=== PATIENT | female | born 1950 | race Caucasian/White ===

== ENCOUNTER → 2021-07-04 | Outpatient (CLI) | payer MEDICARE ==
--- NOTE | 2021-07-04 13:31 | RAD ---
EXAM: 2 views left humerus DATE: 07/04/2021 1:10 PM INDICATION: Reason: FALL X 2 WEEKS AGO / Spl. Instructions: / History: . COMPARISON: No Prior FINDINGS/ IMPRESSION: Comminuted fracture of the proximal left humerus with fracture through the base of greater tuberosity as well as surgical neck. This can be further profiled by CT. Electronically signed by: Ayush Anderson MD (07/04/2021 1:28 PM) [id number]
== END ==
LOC: RAD 13:02
PROVIDERS: ATTEND Nurse Practitioner Family
DX: S42.252A Displaced fracture of greater tuberosity of left humerus, initial encounter for closed fracture (principal); W10.8XXA Fall (on) (from) other stairs and steps, initial encounter; X58.XXXA Exposure to other specified factors, initial encounter; Y93.89 Activity, other specified; Y92.89 Other specified places as the place of occurrence of the external cause; Y99.8 Other external cause status
CPT/HCPCS: 73060

== ENCOUNTER 2021-08-03 09:13 | Emergency (ER) | payer MEDICARE, OTHER ==
[~2021-08-03] VITALS: Ht 152.4 cm; Wt 73.5 kg
[2021-08-03] MEDS ORDERED: CLINDAMYCIN 600MG PREMIX 50 ML IV ONE (10:30)
[2021-08-03 11:13] LABS: BASO # 0.1 x10^3/uL (0.0-0.2); BASO % 0 % (0-3); EOS # 0.2 x10^3/uL (0.0-0.7); EOS % 1 % (0-3); HEMATOCRIT 38.7 % (36.0-47.0); HEMOGLOBIN 12.5 g/dL (12.0-15.5); LYMPH # 1.4 x10^3/uL (1.0-4.8); LYMPH % 5 % (24-48); MEAN CORPUSCULAR HEMOGLOBIN 30 pg (25-35); MEAN CORPUSCULAR HGB CONC 32 g/dL (31-37); MEAN CORPUSCULAR VOLUME 92 fL (79-100); MONO # 1.7 x10^3/uL (0.0-1.1); MONO % 7 % (0-9); NEUT # 23.1 x10^3uL (1.8-7.7); NEUT % 87 % (31-73); PLATELET COUNT 337 x10^3/uL (140-400); RED BLOOD COUNT 4.23 x10^6/uL (3.50-5.40); RED CELL DISTRIBUTION WIDTH 16.8 % (11.5-14.5); WHITE BLOOD COUNT 26.5 x10^3/uL (4.0-11.0)
[2021-08-03] MEDS ORDERED: CONTRAST GIVEN. MC PRN (11:15)
[2021-08-03] MEDS ORDERED: IOHEXOL 300 MG/ML 75 ML VIAL. IV ONE (11:15)
[2021-08-03 11:25] LABS: CALCIUM 9.5 mg/dL (8.5-10.1); CREATININE 1.7 mg/dL (0.6-1.0); GFR 29.5; POTASSIUM 3.5 mmol/L (3.5-5.1)
[2021-08-03] MEDS ORDERED: IV NORMAL SALINE 1,000ML 1,000 ML IV ONE (11:30)
--- NOTE | 2021-08-03 11:55 | PHYS DOC ---
Past History Additional Past Medical Histor: left fractured humerous Past Surgical History: Other Additional Past Surgical Histo: thyroidectomy Alcohol Use: Occasionally Adult General Chief Complaint Chief Complaint: ABSCESS HPI HPI Patient is a 70-year-old female presenting with daughter for left neck abnormality. This was first noticed yesterday. Patient reports 48 hours ago having an itch on the left side of her chin which she subsequent itched vigorous ly. She states that it slowly developed into a small enlarged indurated area and after waking up this morning it and creased in size and became more warm to the touch. There is been no obvious exudate the patient reports focal pain in absence of any respiratory symptoms or concern with airway. She has no MRSA history, has history of high blood pressure only for which she is on medication. No other abnormalities noted Review of Systems Review of Systems Fourteen body systems of review of systems have been reviewed. See HPI for pertinent positives and negative responses, other kline all other systems are negative, non-pertinent or non-contributory Current Medications Current Medications Current Medications Medications (Trade) Dose Ordered Sig/Mehdi Start Time Stop Time Status Last Admin Dose Admin Clindamycin Phosphate 50 ml @ 100 mls/hr 1X ONCE 08/03/21 10:30 08/03/21 10:59 DC 08/03/21 11:23 100 MLS/HR Fentanyl Citrate (Fentanyl 2ml Vial) 50 mcg 1X ONCE 08/03/21 10:15 08/03/21 10:50 DC 08/03/21 11:23 50 MCG Info (Do NOT chart on this entry -- for MONITORING) 1 each PRN DAILY PRN 08/03/21 11:15 08/05/21 11:14 Iohexol (Omnipaque 300 Mg/ml) 75 ml 1X ONCE 08/03/21 11:15 08/03/21 11:16 DC 08/03/21 11:42 75 ML Sodium Chloride 1,000 ml @ 1,000 mls/hr 1X ONCE 08/03/21 11:30 08/03/21 12:29 Allergies Allergies Allergies Coded Allergies Type Severity Reaction Last Updated Verified Ollefax-PAS-QxL Reductase Inhibitor Allergy Unknown 08/03/21 Yes Sulfa (Sulfonamide Antibiotics) Allergy Unknown 08/03/21 Yes azithromycin Allergy Unknown 08/03/21 Yes dulaglutide Allergy Unknown 08/03/21 Yes Physical Exam Physical Exam Constitutional: Well developed, well nourished, no acute distress, non-toxic appearance. HENT: Normocephalic, atraumatic, bilateral external ears normal, oropharynx moist, no oral exudates, nose normal. Tolerating p.o. intake, no phonation changes, bilateral tonsils removed at young age with no obvious airway involvement Eyes: PERRLA, EOMI, conjunctiva normal, no discharge. Neck: Normal range of motion, no tenderness, supple, no stridor. Cardiovascular: Heart rate regular, sinus rhythm, no murmurs rubs or gallops Lungs & Thorax: Bilateral breath sounds clear to auscultation Abdomen: Bowel sounds normal, soft, no tenderness, no masses, no pulsatile masses. Nonsurgical abdomen, no peritoneal signs Skin: Warm, dry, erythematous region along the left submandibular area with obvious site of inoculation and subsequent palpable fluctuant mobile yet firm subcutaneous area concerning for abscess that is approximately 3 x 5 cm Back: No tenderness, no CVA tenderness. Extremities: No tenderness, no cyanosis, no clubbing, ROM intact, no edema. Neurologic: Alert and oriented X 3, grossly normal motor & sensory function, no focal deficits noted. Psychologic: Affect normal, judgement normal, mood normal. Current Patient Data Vital Signs Vital Signs Date Time Temp Pulse Resp B/P (MAP) Pulse Ox O2 Delivery O2 Flow Rate FiO2 08/03/21 11:23 Room Air 08/03/21 09:50 98.8 117 16 169/87 (114) 96 Lab Results Laboratory Tests Test 08/03/21 10:50 White Blood Count 26.5 x10^3/uL (4.0-11.0) H Red Blood Count 4.23 x10^6/uL (3.50-5.40) Hemoglobin 12.5 g/dL (12.0-15.5) Hematocrit 38.7 % (36.0-47.0) Mean Corpuscular Volume 92 fL (79-100) Mean Corpuscular Hemoglobin 30 pg (25-35) Mean Corpuscular Hemoglobin Concent 32 g/dL (31-37) Red Cell Distribution Width 16.8 % (11.5-14.5) H Platelet Count 337 x10^3/uL (140-400) Neutrophils (%) (Auto) 87 % (31-73) H Lymphocytes (%) (Auto) 5 % (24-48) L Monocytes (%) (Auto) 7 % (0-9) Eosinophils (%) (Auto) 1 % (0-3) Basophils (%) (Auto) 0 % (0-3) Neutrophils # (Auto) 23.1 x10^3uL (1.8-7.7) H Lymphocytes # (Auto) 1.4 x10^3/uL (1.0-4.8) Monocytes # (Auto) 1.7 x10^3/uL (0.0-1.1) H Eosinophils # (Auto) 0.2 x10^3/uL (0.0-0.7) Basophils # (Auto) 0.1 x10^3/uL (0.0-0.2) Platelet Estimate Pending Sodium Level 143 mmol/L (136-145) Potassium Level 3.5 mmol/L (3.5-5.1) Chloride Level 108 mmol/L (98-107) H Carbon Dioxide Level 23 mmol/L (21-32) Anion Gap 12 (6-14) Blood Urea Nitrogen 36 mg/dL (7-20) H Creatinine 1.7 mg/dL (0.6-1.0) H Estimated GFR (Cockcroft-Gault) 29.5 Glucose Level 125 mg/dL (70-99) H Calcium Level 9.5 mg/dL (8.5-10.1) EKG EKG [] Radiology/Procedures Radiology/Procedures CT NECK SOFT TISSUE WITH IV CONTRAST History: Left submandibular neck abscess. Comparison: None. Technique: CT of the neck with intravenous contrast. Findings: Mucosa: No mass in the nasal cavity, nasopharynx, oral cavity, oropharynx, larynx, hypopharynx, or proximal trachea/esophagus. Oral cavity is obscured by dental artifact. There is diffuse symmetric hypodensity of the tongue. Glands: Normal bilateral parotid and submandibular glands. The thyroid gland is absent. There is a residual midline thyroid tissue measuring 1.2 x 1.0 x 1.9 cm. Nodes: No pathologically enlarged or necrotic cervical lymph nodes. Vessels: Vascular structures are patent. No carotid space mass. Bones: Degenerative changes of the cervical spine greatest at C5-C6 where there is moderate severe disc and uncovertebral hypertrophy. Other: No suspicious lesion in the lung apices. Skin thickening and cutaneous fat stranding of the left submandibular neck region consistent with cellulitis. No subcutaneous abscess is identified. Impression: 1. Left submandibular neck cellulitis without abscess identified. 2. Diffuse hypodensity of the tongue is favored to represent atrophy. This appears to diffuse and uniform to represent a tongue abscess. Correlate for history of nerve injury or tongue dysfunction. 3. Postsurgical changes from thyroidectomy with residual thyroid tissue at the midline neck measuring 1.2 x 1.0 x 1.9 cm. If thyroidectomy was for cancer, this may represent recurrent disease. Findings discussed with Dr. Lion at 08/03/2021 12:16 PM. Heart Score C/O Chest Pain: No Risk Factors: Risk Factors: DM, Current or recent (<one month) smoker, HTN, HLP, family hi story of CAD, obesity. Risk Scores: Risk Factors: DM, Current or recent (<one month) smoker, HTN, HLP, family history of CAD, obesity. Course & Med Decision Making Course & Med Decision Making ABCs unremarkable except for initial tachycardia and high blood pressure HPI physical exam and comprehensive ER work-up concerning for cellulitis of left neck. I disclosed entirety of findings with patient Patient has history of tongue-tie operation contributing to abnormal CT finding, less likely abscess. 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 ENT and maxillofacial attending physicians and reviewed entirety of case, they recommended transfer for continued IV antibiotics and incision and drainage despite absence of any abscess I disclosed this with patient and daughter at bedside, they did not want to do this as they felt it was aggressive and wanted to try outpatient antibiotics only. Bactrim was recommended but given allergy, clindamycin was chosen to cover MRSA Given that patient did not want to wait for transfer given long wait time next due to current COVID-19 pandemic and capacity issues, extremely close outpatient follow-up within upcoming 24 to 48 hours advised with primary care physician and ENT/maxillofacial surgeons Madhu Disclaimer Madhu Disclaimer This electronic medical record was generated, in whole or in part, using a voice recognition dictation system. Departure Departure: Impression: Primary Impression: Cellulitis of neck Disposition: HOME / SELF CARE / HOMELESS Condition: STABLE Referrals: LORNA BARAJAS MD (PCP) Patient Instructions: Cellulitis Additional Instructions: You were seen for an infection of the neck called cellulitis. You should maru the area of redness when you get home. If your redness spreads past the marked area at 24 hours you should have it evaluated again. You do not have an abscess right now but you could develop one. If so you will need to have it drained. Given appearance in complexity of the case, ears nose throat and maxillofacial surgeons at [facility] were contacted, your ER work-up and images were reviewed. I discussed and recommended hospital transfer for continued IV antibi otics and incision and drainage but decision was made to discharge home with continued attempt of oral antibiotics only. Bactrim was recommended but given your allergy to this medication, clindamycin antibiotic was prescribed. You should take this as prescribed to completion. In addition, you need to contact [facility] ENT team at [phone] first thing in the morning to review your ER visit and need for close outpatient follow-up within upcoming 48 to 72 hours. As disclosed at length, you should return to the ED immediately if you develop worsening pain, fever, swelling, redness, drainage, any sign of abscess, or any other new or concerning symptoms. It is recommended if you were to need repeat evaluation in the ER, time Morris, you should present to [facility] to ensure you can be seen timely by an ENT specialist given current COVID-19 pandemic Scripts Hydrocodone Bit/Acetaminophen (HYDROCODONE-APAP 5-325 ) 1 Each Tablet 1 TAB PO PRN Q6HRS PRN for PAIN, #20 TAB 0 Refills Prov: ANU LION DO 08/03/21 Clindamycin Hcl (CLINDAMYCIN HCL) 300 Mg Capsule 1 CAP PO QID for cellulitis for 10 Days, #40 CAP Prov: ANU LION DO 08/03/21 ANU LION DO Aug 03, 2021 11:55
--- NOTE | 2021-08-03 12:18 | RAD ---
CT NECK SOFT TISSUE WITH IV CONTRAST History: Left submandibular neck abscess. Comparison: None. Technique: CT of the neck with intravenous contrast. Findings: Mucosa: No mass in the nasal cavity, nasopharynx, oral cavity, oropharynx, larynx, hypopharynx, or pr oximal trachea/esophagus. Oral cavity is obscured by dental artifact. There is diffuse symmetric hyp odensity of the tongue. Glands: Normal bilateral parotid and submandibular glands. The thyroid gland is absent. There is a re sidual midline thyroid tissue measuring 1.2 x 1.0 x 1.9 cm. Nodes: No pathologically enlarged or necrotic cervical lymph nodes. Vessels: Vascular structures are patent. No carotid space mass. Bones: Degenerative changes of the cervical spine greatest at C5-C6 where there is moderate severe di sc and uncovertebral hypertrophy. Other: No suspicious lesion in the lung apices. Skin thickening and cutaneous fat stranding of the le ft submandibular neck region consistent with cellulitis. No subcutaneous abscess is identified. Impression: 1. Left submandibular neck cellulitis without abscess identified. 2. Diffuse hypodensity of the tongue is favored to represent atrophy. This appears to diffuse and un iform to represent a tongue abscess. Correlate for history of nerve injury or tongue dysfunction. 3. Postsurgical changes from thyroidectomy with residual thyroid tissue at the midline neck measurin g 1.2 x 1.0 x 1.9 cm. If thyroidectomy was for cancer, this may represent recurrent disease. Findings discussed with Dr. Brady at 08/03/2021 12:16 PM. FOR INTERNAL CODING PURPOSES RESULT CODE: (C) ------ Exposure: One or more of the following individualized dose reduction techniques were utilized for thi s examination: 1. Automated exposure control 2. Adjustment of the mA and/or kV according to patient size 3. Use of iterative reconstruction technique. Electronically signed by: Nahum Taylor MD (08/03/2021 12:16 PM) [facility]
[2021-08-03 12:26] LABS: % BANDS 7 % (0-9); % LYMPHS 14 % (24-48); % MONOS 2 % (0-10); % SEGS 77 % (35-66); PLT ESTIMATE ADEQUATE (ADEQUATE)
[2021-08-03] MEDS ORDERED: CLIN-95 PO (13:53)
[2021-08-03] MEDS ORDERED: HYDR-2155 PO (13:53)
[2021-08-03] MEDS ORDERED: HYDROcodone/APAP 5/325MG 1 TAB TABLET PO ONE (14:00)
[2021-08-03 14:20] VITALS: BP 148/64
== END 2021-08-03 14:20 | disposition home or self-care (01) ==
LOC: ER 09:13
DX: L03.221 Cellulitis of neck (principal); I10 Essential (primary) hypertension; Z88.2 Allergy status to sulfonamides; Z88.1 Allergy status to other antibiotic agents; Z88.8 Allergy status to other drugs, medicaments and biological substances
CPT/HCPCS: 36415; 70491; 80048; 85007; 85025; 96361; 96365; 96375; 96376; 99285; J3010; J3490; J7030; Q9967